=== PATIENT | male | born 1970 | race Caucasian/White ===

== ENCOUNTER 2018-11-28 13:21 | Emergency (ER) | payer MEDICAID ==
[~2018-11-28] VITALS: Ht 175.3 cm; Wt 86.2 kg
[2018-11-28 13:25] VITALS: BP_SYST 127
--- NOTE | 2018-11-28 13:48 | NUR ---
Patient to ER bed H1 to gown for evaluation. Side rails up.
--- NOTE | 2018-11-28 13:52 | NUR ---
ER ISAAC Malik examining patient.
--- NOTE | 2018-11-28 13:52 | NUR ---
Pt is here for refill on ventolin and qvar, states was unable to see PCP and needed a refill. Pt denies n/v, CP or SOB at this time. No other injuries/complaints per pt or noted.
[2018-11-28 14:09] VITALS: BP_SYST 127
--- NOTE | 2018-11-28 14:09 | NUR ---
Patient given written and verbal discharge instructions and verbalizes understanding. ER MD discussed with patient the results and treatment provided. Patient in stable condition. ID arm band removed. Rx of ventolin and qvar given. Patient educated on pain management and to follow up with PMD. Pain Scale 0. Opportunity for questions provided and answered. Medication side effect fact sheet provided.
== END 2018-11-28 14:09 | disposition home or self-care (01) ==
LOC: SED 13:21
DX: Z76.0 Encounter for issue of repeat prescription (principal); J45.909 Unspecified asthma, uncomplicated; R03.0 Elevated blood-pressure reading, without diagnosis of hypertension
CPT/HCPCS: 99283

== ENCOUNTER 2019-02-25 14:22 | Emergency (ER) | payer MEDICAID ==
[~2019-02-25] VITALS: Ht 182.9 cm; Wt 79.4 kg
[2019-02-25 14:40] VITALS: BP_SYST 132
[2019-02-25] MEDS ORDERED: IPRATROPIUM/ALBUTEROL SULFATE 3 ML AMPUL.NEB (DUONEB) INH ONE (15:45)
== END 2019-02-25 16:20 | disposition left against medical advice (07) ==
LOC: SED 14:22
DX: M54.9 Dorsalgia, unspecified (principal); J45.909 Unspecified asthma, uncomplicated; Z53.20 Procedure and treatment not carried out because of patient's decision for unspecified reasons
CPT/HCPCS: 71045; 99283

== ENCOUNTER 2019-12-26 13:22 | Emergency (ER) | payer MEDICAID ==
[~2019-12-26] VITALS: Ht 180.3 cm; Wt 79.4 kg
[2019-12-26 13:38] VITALS: BP_SYST 127
--- NOTE | 2019-12-26 13:41 | NUR ---
Patient to ER bed H1 to gown for evaluation. Side rails up.
--- NOTE | 2019-12-26 13:45 | NUR ---
Dr. Zamudio at bedside for examination.
--- NOTE | 2019-12-26 13:51 | NUR ---
Patient c/o of congestion and SOB x 2 days. Patient reported to have run out of his inhaler since 7 months ago and have experiencing difficulty breathing recently. Patient noted to have runny nose at this time, no signs of distress. Patient does not complain of pain.
[2019-12-26 14:10] VITALS: BP_SYST 127
--- NOTE | 2019-12-26 14:10 | NUR ---
Patient given written and verbal discharge instructions and verbalizes understanding. ER MD discussed with patient the results and treatment provided. Patient in stable condition. ID arm band removed. Rx of sudafed, azithromycin, albuterol, and prednisone given. Patient educated on pain management and to follow up with PMD. Pain Scale 0/10.Opportunity for questions provided and answered. Medication side effect fact sheet provided.
== END 2019-12-26 14:10 | disposition home or self-care (01) ==
LOC: SED 13:22
DX: J45.909 Unspecified asthma, uncomplicated (principal)
CPT/HCPCS: 99283

== ENCOUNTER 2020-04-01 08:28 | Emergency (ER) | payer MEDICAID ==
[~2020-04-01] VITALS: Ht 177.8 cm; Wt 81.6 kg
[2020-04-01 08:28] VITALS: BP_SYST 120
--- NOTE | 2020-04-01 08:28 | NUR ---
BROUGHT BACK TO BED #6 AND TRIAGED. REPORT GIVEN TO YESIKA
--- NOTE | 2020-04-01 08:42 | NUR ---
Pt came to ER to get inhalers refilled, states his asthma gets bad this time of year and needs more meds. AO4, resting in [facility], awaiting MD at this time, no distress, VSS
--- NOTE | 2020-04-01 08:50 | NUR ---
ER at bedside examining patient.
--- NOTE | 2020-04-01 09:10 | NUR ---
Pt ear washed out, pt tolerated procedure well.
[2020-04-01 09:30] VITALS: BP_SYST 120
--- NOTE | 2020-04-01 09:30 | NUR ---
Patient given written and verbal discharge instructions and verbalizes understanding. ER MD discussed with patient the results and treatment provided. Patient in stable condition. ID arm band removed. Rx of Ventolin, Prednisone, Advair given. Patient educated on pain management and to follow up with PMD. Pain Scale 0/10. Opportunity for questions provided and answered. Medication side effect fact sheet provided.
== END 2020-04-01 09:30 | disposition home or self-care (01) ==
LOC: SED 08:28
DX: J45.909 Unspecified asthma, uncomplicated (principal)
CPT/HCPCS: 99283

== ENCOUNTER 2020-06-30 12:11 | Emergency (ER) | payer MEDICAID ==
[~2020-06-30] VITALS: Ht 180.3 cm; Wt 90.7 kg
[2020-06-30 12:16] VITALS: BP_SYST 126
--- NOTE | 2020-06-30 12:28 | NUR ---
Patient called to back, refusing to come in due to,"needing to fill out paperwork."
--- NOTE | 2020-06-30 12:35 | NUR ---
Patient presented to ER C/O Rx Refill. Patient A&Ox4, afebrile, ambulatory to ER, skin pink and warm, denies pain, denies N/V/D Patient states he miss placed inhaler and needs a MD Rx, PMD unavailable.
--- NOTE | 2020-06-30 12:38 | NUR ---
Patient to ER chair for evaluation. Side rails up.
--- NOTE | 2020-06-30 12:38 | NUR ---
ER Dr. Mitchell examining patient.
[2020-06-30 12:45] VITALS: BP_SYST 129
--- NOTE | 2020-06-30 12:46 | NUR ---
Patient given written and verbal discharge instructions and verbalizes understanding. ER MD discussed with patient the results and treatment provided. Patient in stable condition. ID arm band removed. Rx of QVAR & ALBUTEROL given. Patient educated on pain management and to follow up with PMD. Pain Scale 0/10. Opportunity for questions provided and answered. Medication side effect fact sheet provided.
== END 2020-06-30 12:46 | disposition home or self-care (01) ==
LOC: SED 12:11
DX: Z76.0 Encounter for issue of repeat prescription (principal)
CPT/HCPCS: 99281

== ENCOUNTER 2021-01-15 14:17 | Emergency (ER) | payer MEDICAID ==
[~2021-01-15] VITALS: Ht 180.3 cm; Wt 77.1 kg
[2021-01-15 14:17] VITALS: BP_SYST 142
[2021-01-15] MEDS ORDERED: ALBUTEROL MDI INHALATION 8 GM INH INH PRN (15:00)
[2021-01-15 15:19] VITALS: BP_SYST 142
== END 2021-01-15 15:18 | disposition home or self-care (01) ==
LOC: SED 14:17
DX: J45.901 Unspecified asthma with (acute) exacerbation (principal); M54.2 Cervicalgia
CPT/HCPCS: 99283

== ENCOUNTER 2021-05-04 14:27 | Emergency (ER) | payer MEDICAID ==
[~2021-05-04] VITALS: Ht 180.3 cm; Wt 77.1 kg
[2021-05-04 14:33] VITALS: BP_SYST 121
[2021-05-04] MEDS ORDERED: FLUT12AE3 IH (15:10)
[2021-05-04 15:36] VITALS: BP_SYST 121
== END 2021-05-04 15:36 | disposition home or self-care (01) ==
LOC: SED 14:27
DX: R07.89 Other chest pain (principal); J45.20 Mild intermittent asthma, uncomplicated
CPT/HCPCS: 93005; 99283